=== PATIENT | female | born 1970 ===

== ENCOUNTER 2016-05-15 07:38 | Day surgery (SDC) | payer OTHER ==
--- NOTE | 2016-05-14 19:30 | HISTORY AND PHYSICAL ---
ADMITTED: 05/15/2016 HISTORY OF PRESENT ILLNESS: The patient is a 46-year-old female with chief complaint of a painful right foot. States it has gotten progressively worse. States that it hurts with shoe gear. States she has exhausted conservative care and would like to proceed with surgical intervention. MEDICAL/SURGICAL HISTORY: Past medical history: Includes a history of GERD, anxiety. Surgical history: Rotator cuff in 2012 and a gastric sleeve. PRIMARY CARE PROVIDER: Cristela Quintero MD MEDICATIONS: 1. Meloxicam 7.5 mg tablet 1 by mouth b.i.d. 2. Omeprazole 20 mg tablet 1 by mouth daily. ALLERGIES: 1. REPORTS NO KNOWN DRUG OR FOOD ALLERGY. SOCIAL HISTORY: She is , self-employed. Nonsmoker. Drinks socially. FAMILY HISTORY: Breast cancer, mom. Heart disease in maternal grandmother. REVIEW OF SYSTEMS: Ten-point review of systems noncontributory to the chief complaint. PHYSICAL EXAMINATION: GENERAL: The patient is alert, oriented x3. HEENT: PERRLA. Normocephalic. HEART: Regular rate and rhythm. Regular S1 and S2. No murmurs, gallops, or rales. ABDOMEN: Soft, nontender, nondistended. No palpable masses. EXTREMITIES: Lower extremity/Vascular: DP and PT pulses are palpable +2/4 subpapillary venous plexus. Capillary refill within normal limits. Orthopedically, there is a prominent medial eminence crepitus within the right first MTP. Pain on the lateral eminence of the right fifth MTP. Positive pain with palpation of the second intermetatarsal space, right foot and tenderness along the course of the peroneal tendons, right foot, at its point posteriorly to the lateral malleolus to its point of insertion. NEUROLOGIC: Deep tendon reflex, epicritic sensations are intact. LAB/IMAGING: Imaging: Revealed increase in metatarsal angle, first and second, sagittal plane elevatus of the first ray. Prominent lateral eminence of fifth metatarsal head. IMPRESSION: 1. Hallux valgus deformity. 2. Neuroma-like symptoms, second intermetatarsal space, right foot 3. Tailor's bunion. 4. Peroneal tendinitis. PLAN: The patient has consented for outpatient procedure consisting of a distal metatarsal osteotomy of the first metatarsal with rigid internal fixation, a Tailor's bunionette and removal of a neuroma, second intermetatarsal space and a PRP and [place] of the peroneal tendons. Surgery is scheduled on outpatient basis at [place] on 05/15/2016.
[~2016-05-15 07:38] MED LIST: IBUPROFEN600 MG PO; MULTIVITAMIN1 TAB PO; TRAMADOL HCL50 MG PO; ZYRTEC ALLERGY10 MG PO
--- NOTE | 2016-05-15 08:36 | NUR ---
PATIENT ASSESSMENT AND MED/ALLERGY REVIEW COMPLETE. VITALS STABLE. LABS OBTAINED. SURGICAL SITE MARKED BY PATIENT. IV STARTED IN LEFT HAND WITH 1 ATTEMPT. LR INFUSING ON PUMP. PREOP INSTRUCTIONS DISCUSSED. QUESTIONS ENCOURAGED AND ANSWERED BY RN. WILL CONTINUE TO MONITOR.
[2016-05-15] MEDS ORDERED: ZOFRAN4 MG PO (12:21)
[2016-05-15] MEDS ORDERED: PERCOCET1 TA4 PO (12:21)
--- NOTE | 2016-05-15 12:23 | Provider's Discharge Care Plan ---
Problem, Goal, Plan Problem List 1. Hallux valgus (acquired), unspecified foot Goals: Improve function Instructions: Follow up as directed
--- NOTE | 2016-05-15 12:23 | Provider's Discharge Care Plan ---
Problem, Goal, Plan Problem List 1. Hallux valgus (acquired), unspecified foot Goals: Improve function Instructions: Follow up as directed
--- NOTE | 2016-05-15 12:51 | NUR ---
PT IS AWAKE AND ALERT. PT STATES HER NAUSEA GOT "A LOT BETTER" AFTER ZOFRAN 4 MG IV AND QUEASY EASY INHALATION. RIGHT FOOT PAIN IS "TOLERABLE" PER PT RESPONSE. RIGH FOOT IS ELEVATED AND ICED PLACED BEHING PT'S RIGHT KNEE PER MD ORDER. VSS.
--- NOTE | 2016-05-15 13:22 | NUR ---
PATIENT ARRIVED BACK FROM SURGERY. VITALS STABLE. PATIENT STATES PAIN IS 3/10 AND TOLERABLE. TOLERATING ICE CHIPS WITH NO NAUSEA. R FOOT PINK AND WARM. ABLE TO WIGGLE TOES. DRESSINGS CLEAN, DRY AND INTACT.
--- NOTE | 2016-05-15 15:48 | NUR ---
PATIENT DEPARTED SCU AT 1545. VITALS STABLE. DRESSINGS REMAIN C,D,I. IV DISCONTINUED. WALKING BOOT APPLIED. DISCHARGE INSTRUCTIONS DISCUSSED, INCLUDING DRESSING CARE, PAIN MANAGEMENT AND SIGNS/SYMPTOMS TO REPORT. PATIENT VERBALIZED GOOD UNDERSTANDING OF INSTRUCTIONS. PRESCRIPTIONS GIVEN TO PATIENT'S .
[2016-05-15 16:04] VITALS: BP 120/80
--- NOTE | 2016-05-15 21:23 | OPERATIVE REPORT ---
DATE OF SURGERY: 05/15/2016 SURGEON: Kamar Mittal DPM PREOPERATIVE DIAGNOSES: 1. Hallux valgus deformity 2. Neuroma-like symptoms, second intermetatarsal space 3. Tailor's bunion 4. Peroneal tendinitis POSTOPERATIVE DIAGNOSES: 1. Hallux valgus deformity 2. Neuroma-like symptoms, second intermetatarsal space 3. Tailor's bunion 4. Peroneal tendinitis PROCEDURES PERFORMED: 1. Distal metatarsal osteotomy, right first metatarsophalangeal 2. Removal of neuroma, second intermetatarsal space 3. Tailor's bunionectomy, i.e., bunionette 4. Morrow procedure of the peroneal tendon and a PRP injection HEMOSTASIS: Achieved by an ankle tourniquet. Inflated to 250 mmHg pressure. TOURNIQUET TIME: Total tourniquet time, 90 minutes. MATERIALS: 3-0 and 4-0 Polysorb, 4-0 Biosyn, 4-0 Surgipro, and two 2.5 headless compression screws by Arthrex 22 and 24 mm in length. INJECTABLES: Injected 20 mL of 0.5% bupivacaine plain. COMPLICATIONS: None. CONDITION: The patient tolerated anesthesia, procedure well. INDICATIONS: The patient is a 46-year-old female, chief complaint of a painful right foot. States her bunions have progressed, as well as there is pain along the outside of her foot. She has consented for surgical procedures. There are no contraindications to surgery at this time. SURGICAL TECHNIQUE: The patient brought in to the operating room, placed on operating room table in a supine position. General anesthetic was then administered. A pneumatic tourniquet was then placed above the right ankle. Right lower extremity was prepped and draped in normal sterile fashion. An intraoperative pause was carried out with positive identification, proper limb, consent form verified and confirmed, as well as delivery of the 2 g of IV Ancef. An Esmarch bandage was then utilized to exsanguinate the limb, tourniquet was then inflated. Attention was then directed to procedure #1. Distal metatarsal osteotomy, first metatarsal: A linear incision was made down on the dorsal medial aspect of the first metatarsal. It was deepened by sharp and blunt dissection. A capsular incision was made down to the capsule and bone. It was released, allowing access and visualization of a prominent medial eminence. Medial eminence was resected via sagittal saw. At the surgical neck, a distal Chevron was carried out with apex being distal, bases being proximal at 60 degrees orientation. It was a [id number] capital fragment, it was then translated plantarly in the sagittal plane, as well as laterally in the transverse plane, approximately 4-5 mm. Standard AO techniques were then utilized to fixate permanently the osteotomy with the 2.4 headless compression screws running from superior anteriorly to plantar distally, stably fixating the osteotomy. Redundant metatarsal medially and dorsally was resected and the first MTP was contoured to a smooth edge. The area was copiously lavaged and flushed, checked under fluoroscopy for proper placement and anatomic alignment of the first MTP. Capsule and periosteum were reapproximated with 3-0 Polysorb, subcutaneous with 4-0 and skin edges were then reapproximated in a running fashion with 4-0 Biosyn. Attention was then directed to procedure 2. Removal of neuroma, second intermetatarsal space: A linear incision was made from the sulcus of the second intermetatarsal space extending proximal to the metatarsal head levels. It was deepened by sharp and blunt dissection. Employing a smooth Lang laminar grinding room supervisor proximal to the metatarsal head levels and engaged, this allowed access to the deep transverse metatarsal ligament. It was released. The enlarged nerve was clamped with corresponding branches, resected from the medial and lateral aspect of the second and third toe respectively and the nerve was then transected proximal to the metatarsal head levels. It was then passed off from forceps to formalin. The area was flushed. Subcutaneous tissue was reapproximated with 4-0 Polysorb and skin edge was reapproximated in a running fashion with 4-0 Surgipro. Attention was then directed to procedure 3. Tailor's bunionectomy: A linear incision was made overlying the fifth MTP laterally. The incision was carried down to bone. The capsule and periosteum were then reflected and released off from the lateral aspect of the fifth metatarsal head. A sagittal saw was then utilized to resect the prominent lateral eminence. The area was contoured to a smooth edge. The area was flushed. The capsule and periosteum were reapproximated with 3-0 Polysorb, subcutaneous with 4-0 and skin edges reapproximated in a running fashion with 4-0 Biosyn. Verified under fluoroscopy for anatomic alignment of the fifth MTP, which was obtained. Morrow and PRP: At this time, a 0.062 K-wire was then utilized to percutaneously puncture the peroneus brevis tendon just inferior to the lateral malleolus along its course towards its insertion point of the fifth metatarsal. At this time, a Morrow wand from [employer] was set at 4 and the tendon was then under coag pulse the tendon was then punctured with the wand with the radiofrequency setting at 4. The puncture sites were approximately 2 mm in spacing from posterior to anterior to the insertion point of peroneal brevis tendon. The PRP then obtained from the left hand, the nursing staff spun off and the platelets were derived and they were infiltrated along the course of the peroneal brevis tendon in toto approximately 5 mL. The areas were then locally anesthetized with aforementioned local anesthetic. Tourniquet was released with a light compressive dressing applied. Good digital perfusion and warmth noted. The patient tolerated procedures well without complication, left the operating room with vital signs stable. While in recovery, written explicit instructions of touchdown weightbearing with the aid of a fracture boot. Prognosis is guarded. She will be discharged home in stable condition.
== END 2016-05-15 15:45 | disposition home or self-care (01) ==
LOC: OR SRH 07:38 → SCU SRH 07:44 → OR SRH 10:00
PROVIDERS: Podiatrist
PROC: 01BH0ZZ Excision of Peroneal Nerve, Open Approach (ICD-10-PCS; principal; 2016-05-15 10:00)
PROC: 0QBQ0ZZ Excision of Right Toe Phalanx, Open Approach (ICD-10-PCS; principal; 2016-05-15 10:00)
PROC: 0QSN04Z Reposition Right Metatarsal with Internal Fixation Device, Open Approach (ICD-10-PCS; principal; 2016-05-15 10:00)
DX: M20.11 Hallux valgus (acquired), right foot (principal); G57.81 Other specified mononeuropathies of right lower limb; M21.621 Bunionette of right foot
CPT/HCPCS: 29229; 29240; 50004; 60001; 70002; 80071; 80102; 80212; 80356; 80461; 83169; 83414; 83432; 83814; 83815; 83911; 84038; 84137; 84138; 84522; 90074; 90100; 95059; 98428